=== PATIENT | male | born 1980 | race Caucasian/White ===

== ENCOUNTER 2018-01-21 12:07 | Emergency (ER) | payer SELFPAY ==
[~2018-01-21] VITALS: Ht 167.6 cm; Wt 72.6 kg
[2018-01-21 13:20] VITALS: BP 147/101
[2018-01-21] MEDS ORDERED: FLUORESCEIN OPHTH TEST STRIP. OS ONE (13:30)
[2018-01-21] MEDS ORDERED: TETRACAINE 0.5% OPHTH SOLUTION 4ML BOTTLE. OS ONE (13:30)
[2018-01-21] MEDS ORDERED: HYDR-2758 PO (14:36)
[2018-01-21] MEDS ORDERED: ERYT1OIN6 LEFTEYE (14:36)
--- NOTE | 2018-01-21 14:36 | PHYS DOC ---
Past Medical History Past Medical History: No Pertinent History Past Surgical History: No Surgical History Alcohol Use: Occasionally Drug Use: None Adult General Chief Complaint Chief Complaint: EYE PROBLEMS HPI HPI Patient is a 37 year old male who presents to the emergency room with complaints of left eye pain with drainage and crusting for the last 3 days. He denies any use of contact lenses, fever, cough, runny nose, nasal congestion, or any known injury. He states he has tried [id number] eye irritation relief and it did not help. Currently, he reports his pain as a 4 out of 10 on the pain scale, he denies any change in his vision. Review of Systems Review of Systems Constitutional: Denies fever or chills [] Eyes: Denies change in visual acuity; reports left eye pain, redness, crusting, and yellow drainage for the last 3 days, denies any injury HENT: Denies nasal congestion , runny nose, or sore throat [] Respiratory: Denies cough or shortness of breath [] Integument: Denies rash or skin lesions [] Neurologic: Denies headache, focal weakness or sensory changes [] Current Medications Current Medications Current Medications Medications (Trade) Dose Ordered Sig/Winsome Start Time Stop Time Status Last Admin Dose Admin Erythromycin (Romycin) 0.25 inch 1X ONCE 01/21/18 14:45 01/21/18 14:46 DC 01/21/18 14:45 0.25 INCH Fluorescein Sodium (Ful-Aicha) 1 strip 1X ONCE 01/21/18 13:30 01/21/18 13:34 DC 01/21/18 13:45 1 STRIP Tetracaine HCl (Tetracaine) 1 drop 1X ONCE 01/21/18 13:30 01/21/18 13:34 DC 01/21/18 13:45 1 DROP Allergies Allergies Allergies Coded Allergies Type Severity Reaction Last Updated Verified No Known Drug Allergies 08/24/13 No Physical Exam Physical Exam Constitutional: Well developed, well nourished, no acute distress, non-toxic appearance. [] HENT: Normocephalic, atraumatic, bilateral external ears normal, oropharynx moist, no oral exudates, nose normal. [] Eyes: PERRLA, EOMI, R conjunctiva normal, L conjunctiva injected, no discharge from right eye, there is purulent drainage from left eye with mild swelling of the eyelid, and crusting of the left eyelashes. [] Skin: Warm, dry, no erythema, no rash. [] Neurologic: Alert and oriented X 3, normal motor function, normal sensory function, no focal deficits noted. [] Psychologic: Affect normal, judgement normal, mood normal. [] Current Patient Data Vital Signs Vital Signs Date Time Temp Pulse Resp B/P (MAP) Pulse Ox O2 Delivery O2 Flow Rate FiO2 01/21/18 13:20 97.6 82 18 147/101 (116) Room Air 97.6 EKG EKG [] Radiology/Procedures Radiology/Procedures Fluorescein eye exam of the left eye reveals a scleral abrasion located approximately 6:00[] Course & Med Decision Making Course & Med Decision Making Pertinent Labs and Imaging studies reviewed. (See chart for details) Patient is a 37-year-old male who presented to the emergency room with complaints of left eye pain and drainage for the last 3 days. His vital signs are stable, fluorescein exam of the left eye revealed a sclerall abrasion located at approximately 6:00 of the left eye and conjunctivitis, he is treated as such. Pt advised to follow up [facility] in the next 1-2 days. Patient will be prescribed erythromycin eye ointment, and hydrocodone. Patient verbalized an understanding of home care, medications, follow-up, and return to ED instructions and was in agreement with the plan of care. [] Dragon Disclaimer Dragon Disclaimer This electronic medical record was generated, in whole or in part, using a voice recognition dictation system. Departure Departure Impression: Primary Impression: Conjunctivitis of left eye Additional Impression: Abrasion of sclera of left eye Disposition: 01 HOME, SELF-CARE Condition: STABLE Referrals: NO PCP (PCP) Patient Instructions: Eye - Corneal Abrasion, [id number] Additional Instructions: Fill the prescriptions and use them as directed. He may apply warm moist cloths to the eye for relief of discomfort. Use baby shampoo to wash any drainage or crusting away. Follow-up with your [facility] doctor or the [facility] in 1-2 days. Return to the emergency room if your symptoms worsen. Scripts Hydrocodone Bit/Acetaminophen (HYDROCODONE-APAP 5-325 ) 1 Each Tablet 1 TAB PO PRN Q6HRS PRN for PAIN for 3 Days, #12 TAB 0 Refills Prov: OLIVIA VALADEZ CLOTH [employer] 01/21/18 Erythromycin Base (Erythromycin) 1 Gm Oint...g. 1 GM LEFTEYE QID for 5 Days, #1 TUBE 0 Refills Prov: OLIVIA VALADEZ [employer] 01/21/18 Problem Qualifiers Primary Impression: Conjunctivitis of left eye Conjunctivitis type: acute Acute conjunctivitis type: unspecified Qualified Codes: H10.32 - Unspecified acute conjunctivitis, left eye Additional Impression: Abrasion of sclera of left eye Encounter type: initial encounter Qualified Codes: S05.8X2A - Other injuries of left eye and orbit, initial encounter OLIVIA VALADEZ [employer] TESTER Jan 21, 2018 14:36
[2018-01-21] MEDS ORDERED: ERYTHROMYCIN 0.5% OPHTH OINTMENT 1GM TUBE. OS ONE (14:45)
== END 2018-01-21 14:47 | disposition home or self-care (01) ==
LOC: ER 12:07
DX: S05.8X2A Other injuries of left eye and orbit, initial encounter (principal); H10.32 Unspecified acute conjunctivitis, left eye; X58.XXXA Exposure to other specified factors, initial encounter; Y93.89 Activity, other specified; Y92.89 Other specified places as the place of occurrence of the external cause; Y99.8 Other external cause status
CPT/HCPCS: 99284

== ENCOUNTER 2019-08-30 04:25 | Emergency (ER) | payer OTHER ==
[~2019-08-30] VITALS: Ht 167.6 cm; Wt 68.0 kg
[~2019-08-30 04:25] MED LIST: ERYT1OIN6 LEFTEYE; HYDR-2761 PO
[2019-08-30 04:45] VITALS: BP 151/103
--- NOTE | 2019-08-30 05:08 | PHYS DOC ---
Past Medical History Past Medical History: Hypertension Past Surgical History: No Surgical History Additional Past Surgical Histo: LEFT KNEE ARTHROSCOPY, HERNIA SX, JAW WIRED BRANDON T Smoking Status: Current Every Day Smoker Additional Information: 1/2 PPD Alcohol Use: Occasionally Drug Use: None Social History Narrative: REHAB FOR [facility] 1 YR AGO Adult General Chief Complaint Chief Complaint: HEADACHE HPI HPI Patient is a 39 year old male with history of hypertension and previous history of substance and alcohol abuse who presents with complaining of headache. Patient complaining of constant global sharp headache since 2100 last night without fever, nausea and vomiting, head injury, history of headache, focal neuro deficit. Patient rated his pain 7/10 and states he did not take any pain medication because he did not have any pain medicine at home but anyway he did not take the pain medicine helping for his pain. Patient states he was not able to go to the work because of headache and unable to sleep all night. Patient states he used to have hypertension while he was drinking alcohol but he does not drink alcohol heavily anymore and therefore does not have high blood pressure and the last drink was yesterday or the day before yesterday that he had two beers. Review of Systems Review of Systems Constitutional: Denies fever or chills [] Eyes: Denies change in visual acuity, redness, or eye pain [] HENT: Denies nasal congestion or sore throat [] Respiratory: Denies cough or shortness of breath [] Cardiovascular: No additional information not addressed in HPI [] GI: Denies abdominal pain, nausea, vomiting, bloody stools or diarrhea [] : Denies dysuria or hematuria [] Musculoskeletal: Denies back pain or joint pain [] Integument: Denies rash or skin lesions [] Neurologic: Denies focal weakness or sensory changes, reports headache [] Endocrine: Denies polyuria or polydipsia [] All other systems were reviewed and found to be within normal limits, except as documented in this note. Current Medications Current Medications Current Medications Medications (Trade) Dose Ordered Sig/Winsome Start Time Stop Time Status Last Admin Dose Admin Ketorolac Tromethamine (Toradol Im) 60 mg 1X ONCE 08/30/19 05:15 08/30/19 05:16 DC 08/30/19 05:17 60 MG Allergies Allergies Allergies Coded Allergies Type Severity Reaction Last Updated Verified No Known Drug Allergies 08/24/13 No Physical Exam Physical Exam Constitutional: Well developed, well nourished, mild distress, non-toxic appearance. [] HENT: Normocephalic, atraumatic. Eyes: PERRLA, EOMI, conjunctiva normal, no discharge. [] Neck: Normal range of motion, no tenderness, supple, no stridor, no meningeal sign. [] Cardiovascular:Heart rate regular rhythm, no murmur [] Lungs & Thorax: Bilateral breath sounds clear to auscultation [] Skin: Warm, dry, no erythema, no rash. [] Back: No tenderness, no CVA tenderness. [] Extremities: No tenderness, no cyanosis, no clubbing, ROM intact, no edema. [] Neurologic: Alert and oriented X 3, no focal deficits noted. [] Psychologic: Affect anxious, judgement normal, mood normal. [] Current Patient Data Vital Signs Vital Signs Date Time Temp Pulse Resp B/P (MAP) Pulse Ox O2 Delivery O2 Flow Rate FiO2 08/30/19 04:45 97.6 86 18 151/103 (119) 98 Room Air 97.6 EKG EKG [] Radiology/Procedures Radiology/Procedures [] Course & Med Decision Making Course & Med Decision Making Pertinent Imaging studies are pending. Evaluation of patient inertial 39-year-old male patient with complaining of headache since last night without history of headache. Patient had unremarkable physical exam but rated his pain as a 7/10 and stated he did not take any pain medication. CT head is pending. Patient treated with Toradol for his pain in ER. Sign out given to at 0600 for further evaluation and final disposition. Discussed current findings and plan with patient and family, who acknowledge understanding and agreement. Dragon Disclaimer Dragon Disclaimer This electronic medical record was generated, in whole or in part, using a voice recognition dictation system. Departure Departure Impression: Primary Impression: Headache Referrals: NO PCP (PCP) Problem Qualifiers Primary Impression: Headache Headache type: unspecified Headache chronicity pattern: unspecified pattern Intractability: not intractable Qualified Codes: R51 - Headache HECTOR JUSTICE MD Aug 30, 2019 05:07
[2019-08-30] MEDS ORDERED: KETOROLAC 60 MG/2 ML VIAL. IM ONE (05:15)
--- NOTE | 2019-08-30 06:06 | RAD ---
INDICATION: Headache COMPARISON: None. TECHNIQUE: Axial CT images obtained through the head without intravenous contrast. One or more of the following individualized dose reduction techniques were utilized for this examination: 1. Automated exposure control; 2. Adjustment of the mA and/or kV according to patient size; 3. Use of iterative reconstruction technique. FINDINGS: No intracranial hemorrhage. No midline shift. Basal cisterns patent. Ventricles and sulci are unremarkable. No acute osseous abnormality. Orbits and paranasal sinuses unremarkable. IMPRESSION: * No acute intracranial hemorrhage. Electronically signed by: Akshat Dixon MD (08/30/2019 6:02 AM) [id number]
[2019-08-30] MEDS ORDERED: PROC10TA57 PO (07:44)
== END 2019-08-30 07:52 | disposition home or self-care (01) ==
LOC: ER 04:25
DX: R51 Headache (principal); R11.2 Nausea with vomiting, unspecified; I10 Essential (primary) hypertension; F17.200 Nicotine dependence, unspecified, uncomplicated
CPT/HCPCS: 70450; 96372; 99284; J1885